=== PATIENT | female | born 1960 | race Caucasian/White ===

== ENCOUNTER 2020-05-29 09:50 | Outpatient (CLI) | payer BC, SELFPAY ==
[2020-05-29 10:53] LABS: SARS-CoV-2 Ag Negative (Negative)
== END 2020-05-29 09:51 | disposition home or self-care (01) ==
PROVIDERS: PCP Family Medicine; Visit Provider Family Medicine
DX: Z20.828 Contact with and (suspected) exposure to other viral communicable diseases (principal)
CPT/HCPCS: 87426

== ENCOUNTER 2021-06-06 09:44 | Outpatient (CLI) | payer BC, SELFPAY ==
[2021-06-06 10:51] LABS: SARS-CoV-2 RNA PCR Positive (Negative)
== END 2021-06-06 09:45 | disposition home or self-care (01) ==
LOC: CHSLAB 09:46
PROVIDERS: PCP Family Medicine; Visit Provider Family Medicine
DX: U07.1 COVID-19 (principal)
CPT/HCPCS: C9803; U0003; U0005

== ENCOUNTER 2022-08-28 00:36 | Day surgery (SDC) | payer BC, SELFPAY ==
[2022-08-19 15:18] VITALS: BMI 28.3
--- NOTE | 2022-08-27 10:37 | PM.HPGS ---
History of Present Illness History of Present Illness Consent: Risks, benefits, and alternatives have been discussed and questions answered. Patient agrees to proceed with procedure. Chief complaint: neoplasm screening, family hx colon ca Narrative: Darcy Youngblood is a 62 year old female who was referred for colon cancer screening. There is a family history of colon cancer, her father and an uncle had colon cancer. Review of Systems Review of Systems: All systems reviewed & are unremarkable except as noted in HPI and below PMFSH Social History Social History Smoking status: Never smoker Alcohol intake: never Substance use: never Substance use type: does not use Living arrangements: with family Spiritual care concerns: No Meds Home Medications and Allergies Home Medications Medication Instructions Recorded Confirmed Type losartan 50 mg-hydrochlorothiazide 50 tablet PO DAILY 08/19/22 08/19/22 History 12.5 mg tablet Allergies Allergy/AdvReac Type Severity Reaction Status Date / Time latex Allergy Hives Verified 08/28/22 08:16 shrimp Allergy Hives Verified 08/28/22 08:16 Exam Const: General: alert Orientation/consciousness: patient oriented x3 Resp: Auscultation: clear to auscultation bilaterally Cardio: Rhythm: regular rhythm GI: GI Palp: Yes Soft to palpation and No Tenderness to palpation present (GI) Neuro: General: patient oriented x3 Assessment and Plan Assessment and plan (1) Colon cancer screening: Code(s): Z12.11 - Encounter for screening for malignant neoplasm of colon Status: Acute Assessment and Plan: Colonoscopy with possible biopsy or polypectomy or cautery or injection of substances.
[2022-08-28 08:01] VITALS: BP 120/84; PULSE 85; RESP 16; TEMP 36.6; O2SAT 100; BMI 30.3
[2022-08-28] MEDS: LACTATED RINGERS 1,000 ML 150 ML IV CONT (08:04)
--- NOTE | 2022-08-28 08:48 | WPDANESEPPF ---
Anes - Initial Pre Proc Eval Procedure: Operation Date: 08/28/22 09:00 Proposed Procedures p Screening Colonoscopy - Lencho Bonilla MD Date/Time: 08/28/22 08:48 Surgeon: Lencho Bonilla MD Pre Op Diagnosis: neoplasm screening, family hx colon ca Patient Data Age: 62 Gender: F Height: 1.57 m Weight: 75.2 kg Last Vital Signs Temp 97.8 F 08/28/22 08:01 Pulse 85 08/28/22 08:01 Resp 16 08/28/22 08:01 BP 120/84 08/28/22 08:01 Pulse Ox 100 08/28/22 08:01 O2 Del Method Room Air 08/28/22 08:01 Allergies Allergy/AdvReac Type Severity Reaction Status Date / Time latex Allergy Hives Verified 08/28/22 08:16 shrimp Allergy Hives Verified 08/28/22 08:16 Home Medications Medication Instructions Recorded Confirmed Type losartan 50 mg-hydrochlorothiazide 50 tablet PO DAILY 08/19/22 08/19/22 History 12.5 mg tablet Patient hx anesthesia problems: none Family hx anesthesia problems: none Results Review: All pre-operative results and documents have been reviewed as part of the pre-operative evaluation. [facility] Social History Social History Smoking status: Never smoker Alcohol intake: never Substance use: never Substance use type: does not use Living arrangements: with family Spiritual care concerns: No Anes - Eval Final PreProcedure Day of Procedure 08/28/22 08:48 Patient weight: obese Heart: regular rate and rhythm Lungs: clear to auscultation Airway: Mallampati scale class II Neurological: alert and oriented Last oral intake: >/= 8 hours ASA classification: III Emergent: no Anesthetic plan: proceed Anesthesia type and monitoring: general GIVS and standard monitoring Results Review: All pre-operative results and documents have been reviewed as part of the pre-operative evaluation. Informed Consent: The patient's anesthetic plan and its attendant risks and benefits were discussed with the patient/family/POA. Questions were solicited and answers provided to the satisfaction of the patient/family/POA.
[2022-08-28 09:12] VITALS: BP 128/82; PULSE 64; RESP 17; O2SAT 99
[2022-08-28 09:22] VITALS: BP 134/81; PULSE 62; RESP 15; O2SAT 100
[2022-08-28 09:32] VITALS: BP 140/84; PULSE 60; RESP 16; O2SAT 100
== END 2022-08-28 09:34 | disposition home or self-care (01) ==
PROVIDERS: PCP Family Medicine; Visit Provider Internal Medicine Gastroenterology
PROC: 0DJD8ZZ Inspection of Lower Intestinal Tract, Via Natural or Artificial Opening Endoscopic (ICD-10-PCS; CPT 45378; principal; 2022-08-28 09:00)
DX: Z12.11 Encounter for screening for malignant neoplasm of colon (principal); Z80.0 Family history of malignant neoplasm of digestive organs
CPT/HCPCS: 45378; J2704; J7120

== ENCOUNTER 2022-09-10 14:50 | Outpatient (CLI) | payer BC, SELFPAY ==
--- NOTE | ~2022-09-10 | XR_ITS ---
XR knee RT 3V 09/10/2022 15:05 Indication: Right knee pain Procedure: 3 views right knee Comparison: No prior studies for comparison. Findings: Mild tricompartment osteoarthritis of the right knee. No fracture, subluxation or dislocati on. No significant joint effusion. Impression: 1: Mild tricompartment osteoarthritis of the right knee. Reviewed, dictated and finalized at location A. Impression: 1: Mild tricompartment osteoarthritis of the right knee.
== END 2022-09-10 14:51 | disposition home or self-care (01) ==
LOC: CHSIMG 14:52
PROVIDERS: PCP Family Medicine; Visit Provider Nurse Practitioner Family
DX: M25.561 Pain in right knee (principal); M17.11 Unilateral primary osteoarthritis, right knee
CPT/HCPCS: 73562

== ENCOUNTER 2022-09-25 14:20 | Outpatient (CLI) | payer BC, SELFPAY ==
--- NOTE | ~2022-09-25 | MR_ITS ---
MRI of the right knee Clinical history: Pain Technique: Coronal proton density and proton density-weighted images, sagittal proton-density and T2 fat-sat images, and axial proton-density fat-saturated images were acquired. Findings: Anterior and posterior cruciate ligaments are intact. Medial collateral ligament and the la teral collateral ligament complex are intact. There is probable chronic thickening and increased sign al in the proximal fibular collateral ligament. No medial meniscal tear identified. There is complex tearing of the anterior horn of the lateral meni scus which is markedly hyperintense and diminutive. There is mild patchy chondromalacia in the medial lateral compartments. Small osteophytes present at the lateral joint line. Patellofemoral compartment articular cartilage is well preserved. Bone marrow signals are unremarkable. Extensor mechanism is intact. Minimal joint effusion present. No Denney's cyst present. There is a pro bable developing multiseptated ganglion cyst posterior to the medial aspect of the distal femur. Impression: Complex tearing of the anterior horn lateral meniscus, as detailed above. Mild degenerative change in the knee, as detailed above. Probable developing multiseptated ganglion cyst posterior to the medial aspect of the distal femur. Reviewed, dictated and finalized at location . Impression: Complex tearing of the anterior horn lateral meniscus, as detailed above. Mild degenerative change in the knee, as detailed above. Probable developing multiseptated ganglion cyst posterior to the medial aspect of the distal femur.
== END 2022-09-25 14:21 | disposition home or self-care (01) ==
PROVIDERS: PCP Family Medicine; Visit Provider Family Medicine
DX: M25.561 Pain in right knee (principal); M25.461 Effusion, right knee; S83.271A Complex tear of lateral meniscus, current injury, right knee, initial encounter
CPT/HCPCS: 73721

== ENCOUNTER 2023-03-03 16:20 | Outpatient (CLI) | payer OTHER, SELFPAY ==
--- NOTE | ~2023-03-03 | XR_ITS ---
EXAMINATION: XR ribs RT 2V w CXR 2V INDICATION: Right-sided chest pain TECHNIQUE: AP and lateral views of the chest and 3 views of the right ribs were obtained. COMPARISON: None. FINDINGS: There is mild atelectasis of the left lung base. No pleural effusion or pneumothorax. There is mild thoracic spondylosis. The cardiomediastinal silhouette is normal. Surgical changes in the br easts could reflect mastectomy. No displaced rib fracture is identified. IMPRESSION: 1. No acute cardiopulmonary abnormality or evidence of displaced rib fracture. Reviewed, dictated and finalized at location B.
== END 2023-03-03 16:21 | disposition home or self-care (01) ==
LOC: CHSIMG 16:23
PROVIDERS: PCP Family Medicine; Visit Provider Family Medicine
DX: R07.89 Other chest pain (principal)
CPT/HCPCS: 71046; 71100

== ENCOUNTER 2023-11-18 09:22 | Outpatient (CLI) | payer OTHER, SELFPAY ==
--- NOTE | ~2023-11-18 | XR_ITS ---
XR wrist RT min 3V Ordering provider: Troy Knight MD History: . lateral wrist pain, thumb pain . Comparison: None. FINDINGS: BONES: Possible lucency in the scaphoid in the oblique view cannot be excluded. Follow-up in 10 days is advised.. JOINT SPACES: Normal. SOFT TISSUES: Normal. IMPRESSION: No definite acute osseous abnormality right wrist. Possibility of lucency in the scaphoid bone cannot be excluded. Follow-up in 10 days is advised. Reviewed, dictated and finalized at location A. IMPRESSION: No definite acute osseous abnormality right wrist. Possibility of lucency in th e scaphoid bone cannot be excluded. Follow-up in 10 days is advised.
== END 2023-11-18 09:23 | disposition home or self-care (01) ==
LOC: CHSIMG 09:25
PROVIDERS: PCP Family Medicine; Visit Provider Family Medicine
DX: M25.531 Pain in right wrist (principal)
CPT/HCPCS: 73110

== ENCOUNTER 2023-12-01 08:58 | Outpatient (CLI) | payer OTHER, SELFPAY ==
--- NOTE | ~2023-12-01 | XR_ITS ---
EXAMINATION: XR wrist RT min 3V DATE: 12/01/2023 09:16 INDICATION: Right wrist pain TECHNIQUE: Posteroanterior, ulnar deviation, oblique, and lateral views of the right wrist were obtai kendall. COMPARISON: 11/18/2023 FINDINGS: Alignment is normal. No fracture. Mild osteoarthritis at the first carpometacarpal and first metacarp ophalangeal and first interphalangeal joints. No erosions or periosteal reaction. Soft tissues are un remarkable. IMPRESSION: 1. Mild osteoarthritis throughout the right thumb. No acute osseous abnormality. Reviewed, dictated and finalized at location A. IMPRESSION: 1. Mild osteoarthritis throughout the right thumb. No acute osseous abnormality .
== END 2023-12-01 08:59 | disposition home or self-care (01) ==
LOC: CHSIMG 09:00
PROVIDERS: PCP Family Medicine; Visit Provider Family Medicine
DX: M25.531 Pain in right wrist (principal); M19.031 Primary osteoarthritis, right wrist
CPT/HCPCS: 73110

== ENCOUNTER 2024-06-14 11:57 | Outpatient (CLI) | payer OTHER, SELFPAY ==
--- NOTE | ~2024-06-14 | DEXA_ITS ---
Bone Density Report Name: JAMESON MORA Age: 63 Sex: Female Ethnicity: White Date of : 1960 Indication: postmenopausal; screening for osteoporosis; cancer; Referring Provider: APRIL ELLSWORTH Study: Bone densitometry was performed. Exam Date: June 14, 2024 Accession number: [id number] Bone Density: Region BMD T-score Z-score Classification AP Spine(L1-L4) 0.891 -1.4 0.3 Osteopenia Femoral Neck (Left) 0.764 -0.8 0.7 Normal Total Hip (Left) 0.918 -0.2 1.0 Normal Femoral Neck (Right) 0.719 -1.2 0.3 Osteopenia Total Hip (Right) 0.849 -0.8 0.4 Normal Femoral Neck Mean 0.741 -1.0 0.5 Normal Total Hip Mean 0.884 -0.5 0.7 Normal World Health Organization criteria for BMD impression classify patients as: Normal (T-score at or above -1.0), Osteopenia (T-score between -1.0 and -2.5), or Osteoporosis (T-score at or below -2.5). 10-year Fracture Risk(1): Major Osteoporotic Fracture 7.8% Hip Fracture 0.6% Reported Risk Factors: [place] (), Neck BMD=0.719, BMI=30.8 (1) FRAX(R) Version 3.08. Fracture probability calculated for an untreated patient. Fracture probability may be lower if the patient has received treatment. Clinical Information Provided by Patient: Has used the following medications: Vitamin D, Calcium Has the following medical conditions: Cancer Patient maximum height was 63 Menopause Age: 50 Drinks caffeinated beverages Onset of menses at age 10 Number of children 3 Impression: The patient has low bone mass, based on the Total Spine T-score. Discussion: BONE DENSITY IS LOW AT ONE OR MORE SKELETAL SITES. This patient's lowest T-score is low at one or more skeletal sites. It meets the World Health Organization's (WHO) criteria for ?low bone mass? (T-score between -1.0 and -2.5). The patient's 10-year risk of fracture as calculated by FRAX is less than the threshold where pharmacological therapy is recommended by the National Osteoporosis Foundation (NOF). However, all treatment decisions require clinical judgment and consideration of individual patient factors, including patient preferences, comorbidities, previous drug use, risk factors not captured in the FRAX model (e.g., frailty, falls, vitamin D deficiency, increased bone turnover, interval significant decline in bone density) and possible under or overestimation of fracture risk by FRAX. The patient should follow a healthful lifestyle (good nutrition with adequate calcium and vitamin D, and appropriate weight-bearing exercise). Follow-Up: Consider repeating this study in 2 to 3 years to reassess this patient's status, or sooner if there is some new clinical indication. Reported by: TOÑO on 06/14/2024 12:18:00 PM. Reviewed, dictated and finalized at location A.
== END 2024-06-14 11:58 | disposition home or self-care (01) ==
LOC: CHSIMG 11:58
PROVIDERS: PCP Family Medicine; Visit Provider Obstetrics & Gynecology
DX: Z78.0 Asymptomatic menopausal state (principal); M85.88 Other specified disorders of bone density and structure, other site
CPT/HCPCS: 77080